=== PATIENT | male | born 1945 | race Caucasian/White ===

== ENCOUNTER 2019-09-14 06:42 | Day surgery (SDC) | payer OTHER ==
[~2019-09-14] VITALS: Ht 180.3 cm; Wt 121.1 kg
[~2019-09-14 06:42] MED LIST: ASPI81TA85 PO; B COTAB3 PO; JARD1TAB3 PO; LISI40TA PO; METF10004 PO; MM S100C PO; MULTCAP PO; ROSU10TA6 PO; VICT18IN SC
[2019-09-14] MEDS ORDERED: NS 1,000 ML IV ONE (07:00)
[2019-09-14] MEDS ORDERED: PROPOFOL 200 MG/20 ML VIAL As Ordered ONE ×2 (07:10→07:44)
[2019-09-14] MEDS ORDERED: LIDOCAINE 2% INJ 100 MG/5 ML SDV (FOR ANES.) As Ordered ONE (07:10)
--- NOTE | 2019-09-14 08:00 | ROOR ---
Patient Name: Sergio Rutherford Procedure Date: 09/14/2019 7:29 AM Date of : 1945 Age: 74 Room: [facility] Gender: Male Note Status: Finalized Procedure: Total Colonoscopy to Cecum Indications: High risk colon cancer surveillance: Personal history of colonic polyps, Last colonoscopy: 2012 Providers: Huy Moss MD Referring MD: Luiz Rosa Requesting Provider: Medicines: Monitored Anesthesia Care Complications: No immediate complications. Procedure: Pre-Anesthesia Assessment: - The heart rate, respiratory rate, oxygen saturations, blood pressure, adequacy of pulmonary ventilation, and response to care were monitored throughout the procedure. The Colonoscope was introduced through the anus and advanced to the cecum, identified by appendiceal orifice and ileocecal valve. The colonoscopy was performed without difficulty. The patient tolerated the procedure well. The quality of the bowel preparation was good. Findings: The perianal and digital rectal examinations were normal. Non-bleeding internal hemorrhoids were found during retroflexion. The hemorrhoids were mild, small and Grade I (internal hemorrhoids that do not prolapse). Scattered small-mouthed diverticula were found in the recto-sigmoid colon, sigmoid colon and descending colon. The exam was otherwise without abnormality on direct and retroflexion views. Impression: - Non-bleeding internal hemorrhoids. - Diverticulosis in the recto-sigmoid colon, in the sigmoid colon and in the descending colon. - The examination was otherwise normal on direct and retroflexion views. - No specimens collected. - The exam was otherwise normal to the cecum. Recommendation: - Patient has a contact number available for emergencies. The signs and symptoms of potential delayed complications were discussed with the patient. Return to normal activities tomorrow. Written discharge instructions were provided to the patient. - High fiber diet. - Discharge patient to home. - Continue present medications. - Repeat colonoscopy in 5 years for surveillance. - Return to referring physician. - The findings and recommendations were discussed with the patient's family. Huy Moss MD Huy Moss MD 09/14/2019 8:00:14 AM Electronically signed by Huy Moss MD Number of Addenda: 0 Note Initiated On: 09/14/2019 7:29 AM Estimated Blood Loss: Estimated blood loss: none.
[2019-09-14 08:26] VITALS: BP 116/61
== END 2019-09-14 08:25 | disposition home or self-care (01) ==
LOC: M OPP 06:42
PROVIDERS: ATTEND Internal Medicine Gastroenterology
DX: Z12.11 Encounter for screening for malignant neoplasm of colon (principal); Z86.010 Personal history of colon polyps; K64.0 First degree hemorrhoids; K57.30 Diverticulosis of large intestine without perforation or abscess without bleeding; E11.9 Type 2 diabetes mellitus without complications; I10 Essential (primary) hypertension; G47.30 Sleep apnea, unspecified; Z79.82 Long term (current) use of aspirin; Z79.84 Long term (current) use of oral hypoglycemic drugs; Z79.899 Other long term (current) drug therapy

== ENCOUNTER → 2021-08-22 | Outpatient (CLI) | payer OTHER ==
[~2021-08-22] MED LIST changes: -ASPI81TA85 PO; +ASPI81TA86 PO; +ISOVUE-300 61% 50ML VIAL As Ordered ONE; +LIDOCAINE 1% MDV 20ML VIAL As Ordered ONE; -LISI40TA PO; +LISI40TA4 PO; +methylPREDNISolone SUSP 40MG/ML 1ML VIAL (DEPO MEDROL) As Ordered ONE
--- NOTE | 2021-08-22 16:47 | REP ---
INDICATION: OA RT SHOULDER. COMPARISON: None. TECHNIQUE: The procedure was performed under the direct supervision of Dr. Mcgill. The benefits and risks including but not limited to pain infection bleeding and anaphylaxis were explained to the patient and informed consent was obtained. The right glenohumeral joint space was localized using fluoroscopic guidance. The skin was prepped and draped in a sterile fashion. 1% lidocaine was used as a local anesthetic. Using fluoroscopic guidance, and last image hold technology, a 22 gauge spinal needle was inserted and advanced into the joint. 1 mL of Isovue-300 was injected to verify placement. 5 mL of a solution containing 3 mL of 1% lidocaine and 2 mL of Depo-Medrol 40 mg was injected. The needle was then removed. The patient tolerated the procedure well and there were no immediate complications. Less than 6 seconds of fluoroscopy time was utilized for this procedure. FINDINGS: None IMPRESSION: Fluoro guidance for right shoulder injection. <Electronically signed by Marcus Bañuelos > 08/22/21 [id number] <Electronically signed by Andrews Mcgill > 08/22/21 [id number]
== END ==
LOC: M RADPRO 09:56
PROVIDERS: ATTEND Orthopaedic Surgery Sports Medicine
DX: M19.011 Primary osteoarthritis, right shoulder (principal)
CPT/HCPCS: 20610; 77002; J1030; Q9967

== ENCOUNTER → 2021-09-30 | Outpatient (CLI) | payer OTHER ==
[~2021-09-30] MED LIST changes: -ISOVUE-300 61% 50ML VIAL As Ordered ONE; -LIDOCAINE 1% MDV 20ML VIAL As Ordered ONE; -methylPREDNISolone SUSP 40MG/ML 1ML VIAL (DEPO MEDROL) As Ordered ONE
--- NOTE | 2021-09-30 12:23 | REP ---
INDICATION: OSTEOARTHRITIS. COMPARISON: None. TECHNIQUE: 1.1 x 1 mm increments using helical technique and reconstructed in both sagittal and coronal planes. FINDINGS: There is severe asymmetric glenohumeral joint space narrowing with advanced subchondral cyst formation involving both sides of the joint. There is prominent glenoid and humeral head marginal osteophytosis. There is superior subluxation of the humeral head within the glenoid. There is likely a type 3 acromion process. Seen adjacent to the anterior superior margin of the humeral head abutting the coracoid process there is a 1.6 cm sized ossific density. Hypertrophic degenerative changes seen within the asymmetrically narrowed AC joint along with marginal osteophyte formation. IMPRESSION: 1. There is advanced glenohumeral degenerative change as described above. 2. There is evidence of a loose intra-articular body as described above. 3. AC joint DJD. 4. Other findings as described above. <Electronically signed by Thuan Osorio > 09/30/21 [id number]
--- NOTE | 2021-09-30 12:29 | REP ---
INDICATION: OSTEOARTHRITIS. COMPARISON: CT obtained today TECHNIQUE: Coronal oblique T1 and fat suppressed T2. Sagittal oblique fat suppressed T2. Axial rkual-lqxjhzif-fpar and T2 FLASH. FINDINGS: There is severe hypertrophic degenerative change seen involving the acromioclavicular joint which is asymmetrically narrowed and seen with T2 hyper signal within the joint. The acromion process is type 3. There is T2 hyper signal seen throughout the supraspinatus tendon without evidence of musculotendinous retraction. There is evidence of atrophy of the supraspinatus tendon. Patchy and linear T2 hyper signal is seen in the subscapularis tendon. The biceps tendon resides within the bicipital groove. There is fluid in the subcoracoid recess. Once again, there is an ossific structure within the lateral margin of the subcoracoid recess. There is advanced asymmetric glenohumeral joint space narrowing with advanced subchondral cyst formation involving both glenoid and humeral sides of the GH joint. There is advanced humeral head marginal osteophytosis. The labrum is barely perceptible. IMPRESSION: 1. Supraspinatus tendinitis/tendinosis which appears rather advanced. A partial full-thickness tear cannot be ruled out. 2. Subscapularis tendinitis/tendinosis. 3. AC joint DJD as described above. 4. Evidence of a loose intra-articular body. Please see the CT report made same day. 5. Evidence of extensive labral degeneration. 6. Other findings as described above. <Electronically signed by Thuan Osorio > 09/30/21 [id number]
== END ==
LOC: M PLAIMG 10:59
PROVIDERS: ATTEND Orthopaedic Surgery Sports Medicine
DX: M19.90 Unspecified osteoarthritis, unspecified site (principal)

== ENCOUNTER → 2022-04-11 | Outpatient (CLI) | payer OTHER | LOC: M PLARAD 07:58 | PROVIDERS: ATTEND Otolaryngology Facial Plastic Surgery | DX: H90.0 Conductive hearing loss, bilateral (principal) ==